=== PATIENT | female | born 1965 | race Caucasian/White ===

== ENCOUNTER 2021-06-27 11:21 | Outpatient (CLI) | payer OTHER | END 2021-06-27 11:25 | disposition home or self-care (01) | LOC: LAB 11:21 | PROVIDERS: ATTEND Radiology Diagnostic Radiology | DX: R10.10 Upper abdominal pain, unspecified (principal) ==

== ENCOUNTER 2021-06-28 07:04 | Outpatient (CLI) | payer OTHER | END 2021-06-28 07:20 | disposition home or self-care (01) | LOC: MRI 07:04 | DX: K80.80 Other cholelithiasis without obstruction (principal); R10.2 Pelvic and perineal pain; R10.84 Generalized abdominal pain; C54.1 Malignant neoplasm of endometrium | CPT/HCPCS: 72197; 74183 ==

== ENCOUNTER 2021-08-30 11:13 | Inpatient (IN) | payer OTHER ==
[~2021-08-30] VITALS: Ht 154.9 cm; Wt 76.2 kg
[2021-08-30] MEDS ORDERED: METFORMIN HCL500 MG PO (15:08)
[2021-08-30] MEDS ORDERED: VITAMIN D PO (15:08)
[2021-08-30] MEDS ORDERED: AVAPRO300 MG PO (15:08)
[2021-08-30] MEDS ORDERED: SYNTHROID50 MCG PO (15:08)
[2021-08-30] MEDS ORDERED: NORVASC2.5 MG PO (15:09)
[2021-08-30] MEDS ORDERED: FEOSOL325 MG PO (15:09)
== END 2021-09-04 14:14 | disposition home or self-care (01) | DRG 741 ==
LOC: OB/GYN 09-01 05:50 → O/R 09-01 05:50 → OB/GYN 09-01 07:00 → SURG-SUITE 09-01 16:55
PROVIDERS: ADMIT Obstetrics & Gynecology Gynecologic Oncology; ATTEND Obstetrics & Gynecology Gynecologic Oncology
PROC: 0UT20ZZ Resection of Bilateral Ovaries, Open Approach (ICD-10-PCS; 2021-09-01)
PROC: 0UT70ZZ Resection of Bilateral Fallopian Tubes, Open Approach (ICD-10-PCS; 2021-09-01)
PROC: 07BC0ZZ Excision of Pelvis Lymphatic, Open Approach (ICD-10-PCS; 2021-09-01)
PROC: 0UT90ZZ Resection of Uterus, Open Approach (ICD-10-PCS; principal; 2021-09-01 07:00)
DX: C54.1 Malignant neoplasm of endometrium (principal); D36.0 Benign neoplasm of lymph nodes